=== PATIENT | male | born 1960 | race Caucasian/White ===

== ENCOUNTER 2017-09-18 01:18 | Observation (INO) | payer OTHER ==
[2017-09-18] VITALS (8 sets, daily range): BP systolic 148–183; BP diastolic 88–93; PULSE 71–94; RESP 16–20; TEMP 97.7–98.1; O2SAT 94–98
--- NOTE | 2017-09-18 01:41 | PD ---
HPI Chief Complaint: Respiratory Symptoms Time Seen by Provider: 01:27 Travel History International Travel<30 days: No Contact w/Intl Traveler<30days: No Traveled to known affect area: No History of Present Illness HPI 57-year-old male with history of hypertension on amlodipine and HCTZ, here by private vehicle for evaluation of sudden onset shortness of breath and substernal chest discomfort that started about an hour prior to arrival and will come up from sleep. Patient reports orthopnea and dyspnea with exertion. He also has noted bilateral lower extremity edema. He has history of asthma. No other known history of cardiopulmonary disease. No history of DVT or PE. No family history of cardiac disease. He is a non-smoker. No fevers, chills, cough, or recent illness. He does report that over the weekend he did consume a moderate amount of alcohol. PFSH Past Medical History Asthma: Yes Diminished Hearing: No Hypertension: Yes Immunizations Current: Yes Sleep Apnea: Yes Past Surgical History Other Surgery: Yes (VASECTOMY, NOSE) Social History Alcohol Use: Yes Tobacco Use: No Substance Use: No Allergies-Medications (Allergen,Severity, Reaction): Coded Allergies: No Known Allergies (Unverified , 09/18/17) Reported Meds & Prescriptions Reported Meds & Active Scripts Active Reported Hydrochlorothiazide 12.5 Mg Cap 12.5 Mg PO BID Amlodipine (Amlodipine Besylate) 5 Mg Tab 5 Mg PO DAILY Review of Systems Except as stated in HPI: all other systems reviewed are Neg Physical Exam Narrative GENERAL: Well-developed, well-nourished, comfortable, no apparent distress. SKIN: Focused skin assessment warm/dry. HEAD: Atraumatic. Normocephalic. EYES: Pupils equal and round. No scleral icterus. No injection or drainage. ENT: No nasal bleeding or discharge. Mucous membranes pink and moist. NECK: Trachea midline. No JVD. CARDIOVASCULAR: Regular rate and rhythm. No murmur appreciated. RESPIRATORY: No accessory muscle use. Slight bibasilar crackles, no wheezes or rhonchi. Breath sounds equal bilaterally. GASTROINTESTINAL: Abdomen soft, non-tender, nondistended. MUSCULOSKELETAL: No obvious deformities. No clubbing. No cyanosis. Moderate bilateral lower extremity edema from foot to knee. NEUROLOGICAL: Awake and alert. No obvious cranial nerve deficits. Motor grossly within normal limits. Normal speech. PSYCHIATRIC: Appropriate mood and affect; insight and judgment normal. Data Data Last Documented VS Vital Signs Date Time Temp Pulse Resp B/P (MAP) Pulse Ox O2 Delivery O2 Flow Rate FiO2 09/18/17 01:56 98 Nasal Cannula 2.00 09/18/17 01:20 97.7 94 18 183/93 (123) Orders Orders Complete Blood Count With Diff (09/18/17 01:32) Comprehensive Metabolic Panel (09/18/17 01:32) B-Type Natriuretic Peptide (09/18/17 01:32) D-Dimer (09/18/17 01:32) Act Partial Throm Time (Ptt) (09/18/17 01:32) Prothrombin Time / Inr (Pt) (09/18/17:32) Magnesium (Mg) (09/18/17 01:32) Ckmb (Isoenzyme) Profile (09/18/17 01:32) Troponin I (09/18/17 01:32) Iv Access Insert/Monitor (09/18/17 01:32) Electrocardiogram (09/18/17 01:32) Ecg Monitoring (09/18/17 01:32) Oximetry (09/18/17 01:32) Oxygen Administration (09/18/17 01:32) Chest, Single Ap (09/18/17 01:32) Sodium Chloride 0.9% Flush (Ns Flush) (09/18/17 01:45) Aspirin Chew (Aspirin Chew) (09/18/17 01:45) CKMB (09/18/17 01:55) CKMB% (09/18/17 01:55) Ct Pulmonary Angiogram (09/18/17 ) Nitroglycerin Sl (Nitrostat Sl) (09/18/17 02:45) Iohexol 350 Inj (Omnipaque 350 Inj) (09/18/17 02:48) Diphenhydramine Inj (Benadryl Inj) (09/18/17 04:00) Us Leg Venous Doppler Bilat (09/18/17 04:03) Labs Laboratory Tests Test 09/18/17 01:55 White Blood Count 6.4 TH/MM3 Red Blood Count 4.99 MIL/MM3 Hemoglobin 15.1 GM/DL Hematocrit 43.1 % Mean Corpuscular Volume 86.4 FL Mean Corpuscular Hemoglobin 30.3 PG Mean Corpuscular Hemoglobin Concent 35.1 % Red Cell Distribution Width 13.4 % Platelet Count 271 TH/MM3 Mean Platelet Volume 7.4 FL Neutrophils (%) (Auto) 52.1 % Lymphocytes (%) (Auto) 30.6 % Monocytes (%) (Auto) 10.6 % Eosinophils (%) (Auto) 6.2 % Basophils (%) (Auto) 0.5 % Neutrophils # (Auto) 3.4 TH/MM3 Lymphocytes # (Auto) 2.0 TH/MM3 Monocytes # (Auto) 0.7 TH/MM3 Eosinophils # (Auto) 0.4 TH/MM3 Basophils # (Auto) 0.0 TH/MM3 CBC Comment DIFF FINAL Differential Comment Prothrombin Time 9.7 SEC Prothromb Time International Ratio 1.0 RATIO Activated Partial Thromboplast Time 25.8 SEC D-Dimer Quantitative (PE/DVT) 0.51 MG/L FEU Blood Urea Nitrogen 14 MG/DL Creatinine 1.04 MG/DL Random Glucose 134 MG/DL Total Protein 7.8 GM/DL Albumin 4.0 GM/DL Calcium Level 8.5 MG/DL Magnesium Level 2.1 MG/DL Alkaline Phosphatase 51 U/L Aspartate Amino Transf (AST/SGOT) 42 U/L Alanine Aminotransferase (ALT/SGPT) 53 U/L Total Bilirubin 0.3 MG/DL Sodium Level 141 MEQ/L Potassium Level 3.4 MEQ/L Chloride Level 102 MEQ/L Carbon Dioxide Level 28.4 MEQ/L Anion Gap 11 MEQ/L Estimat Glomerular Filtration Rate 74 ML/MIN Total Creatine Kinase 423 U/L Creatine Kinase MB 3.9 NG/ML Creatine Kinase MB % 0.9 % Troponin I LESS THAN 0.02 NG/ML B-Type Natriuretic Peptide 9 PG/ML [facility] Medical Decision Making Medical Screen Exam Complete: Yes Emergency Medical Condition: Yes Interpretation(s) EKG: Sinus, rate 86, normal axis, normal intervals, no acute ischemic abnormality. Differential Diagnosis CHF, pulmonary edema, CAD, ACS, pneumothorax, PE, pneumonia, holiday heart, pericardial effusion Narrative Course Initial vital signs show heart rate 94, blood pressure 183/93, pulse ox 96% on 2 L nasal cannula, oral temp of 97.7F. CBC: WBC 6.4, hemoglobin 15.1, hematocrit 43.1, platelets 271. CMP is remarkable for potassium 3.4, AST 42, otherwise unremarkable. Troponin is negative. D-dimer 0.51. CT pulmonary angiogram: CONCLUSION: 1. There is no evidence of PE for technique. 2. Tiny right lung nodule, repeat noncontrast chest CT is suggested in 6 months as a conservative follow up. Patient and the patient's were made aware of all findings. On reassessment he complains of nasal congestion and believes he may have had an allergic reaction to the rubber hosing from the nasal cannula. He will be given a dose of Benadryl for this. Patient was given 1 sublingual nitroglycerin. He still complains of some mild substernal chest discomfort. He was made aware of CT findings of right lung nodule. Bilateral lower extremity venous duplex will be ordered for bilateral lower extremity edema to rule out DVT. Case was discussed with [facility] hospitalist Dr. Moore who recommends getting the lower extremity venous duplex. If this is negative he would like the patient to be admitted to the chest pain center for further cardiac workup. Bilateral lower extremity venous duplex: Negative for DVT. The patient and the patient's were made aware of all findings. He will be admitted to the chest pain center for further cardiac workup. They are amenable to this plan. Diagnosis Primary Impression: Chest pain Qualified Codes: R07.9 - Chest pain, unspecified Additional Impressions: Dyspnea Qualified Codes: R06.00 - Dyspnea, unspecified Bilateral lower extremity edema Pulmonary nodule Admitting Information Admitting Physician Requests: Nick Swanson MD September 18, 2017 01:41
[2017-09-18] MEDS ORDERED: SODIUM CHLORIDE 0.9% FLUSH 10 ML FLUSH IVF PRN (01:45)
[2017-09-18] MEDS ORDERED: ASPIRIN 81 MG CHEW TAB CHEW ONE (01:45)
--- NOTE | 2017-09-18 01:54 | RADRPT ---
EXAM DATE: 09/18/2017 1:52 AM EDT AGE/SEX: 57 years / Male INDICATIONS: Short of breath and chest discomfort. CLINICAL DATA: This is the patient's initial encounter. Patient reports that signs and symptoms have been present for 1 day and indicates a pain score of 5/10. MEDICAL/SURGICAL HISTORY: None. None. COMPARISON: No prior exams available for comparison. FINDINGS: The lungs are clear without infiltrate, nodule, or mass. There is no appreciable pleural effusion for technique. Heart and mediastinum are unremarkable. CONCLUSION: No acute cardiopulmonary disease. Electronically signed by: Yu Chavez MD 09/18/2017 1:53 AM EDT
[2017-09-18] MEDS ORDERED: AMLO5TAB2 PO (01:56)
[2017-09-18] MEDS ORDERED: HYDR12.57 PO (01:56)
[2017-09-18 02:09] LABS: AUTOMATED NEUTROPHIL # 3.4 TH/MM3 (1.8-7.7); BASOPHIL % 0.5 % (0.0-2.0); EOSINOPHIL # 0.4 TH/MM3 (0-0.4); EOSINOPHIL % 6.2 % (0.0-4.0); HEMATOCRIT 43.1 % (39.0-51.0); HEMOGLOBIN 15.1 GM/DL (13.0-17.0); LYMPH % 30.6 % (9.0-44.0); MEAN CELL VOLUME 86.4 FL (80.0-100.0); MEAN CORPUSCULAR HEMOGLOBIN 30.3 PG (27.0-34.0); MEAN CORPUSCULAR HGB CONC 35.1 % (32.0-36.0); MEAN PLATELET VOLUME 7.4 FL (7.0-11.0); MONO % 10.6 % (0.0-8.0); MONOCYTE # 0.7 TH/MM3 (0-0.9); NEUT % 52.1 % (16.0-70.0); PLATELET COUNT 271 TH/MM3 (150-450); RED BLOOD COUNT 4.99 MIL/MM3 (4.50-5.90); RED CELL DISTRIBUTION WIDTH 13.4 % (11.6-17.2); WHITE BLOOD COUNT 6.4 TH/MM3 (4.0-11.0)
[2017-09-18 02:21] LABS: D-DIMER 0.51 MG/L FEU (0.00-0.50); PROTHROMBIN TIME - PATIENT 9.7 SEC (9.8-11.6)
[2017-09-18 02:27] LABS: ALT (GPT) 53 U/L (12-78); AST (GOT) 42 U/L (15-37); BICARBONATE 28.4 MEQ/L (21.0-32.0); BLOOD UREA NITROGEN 14 MG/DL (7-18); CALCIUM 8.5 MG/DL (8.5-10.1); CHLORIDE 102 MEQ/L (98-107); CREATININE 1.04 MG/DL (0.60-1.30); GLOMERULAR FILTRATION RATE 74 ML/MIN (>89); GLUCOSE,RANDOM 134 MG/DL (74-106); MAGNESIUM 2.1 MG/DL (1.5-2.5); SODIUM (NA) 141 MEQ/L (136-145)
[2017-09-18 02:31] LABS: ALKALINE PHOSPHATASE 51 U/L (45-117); TOTAL BILIRUBIN ADULT 0.3 MG/DL (0.2-1.0); TOTAL PROTEIN 7.8 GM/DL (6.4-8.2); TROPONIN I LESS THAN 0.02 NG/ML (0.02-0.05)
[2017-09-18] MEDS ORDERED: NITROGLYCERIN 0.4 MG SL 25 TABS/BTL SL ONE (02:45)
[2017-09-18] MEDS ORDERED: IOHEXOL 350 MG/ML 10 ML VIAL (for RAD DIAG) IVCONTRAST ONE (02:48)
--- NOTE | 2017-09-18 03:51 | RADRPT ---
EXAM DATE: 09/18/2017 3:16 AM EDT AGE/SEX: 57 years / Male INDICATIONS: Shortness of breath. CLINICAL DATA: This is the patient's initial encounter. Patient reports that signs and symptoms have been present for 1 day and indicates a pain score of 4/10. MEDICAL/SURGICAL HISTORY: Hypertension. Asthma. None. RADIATION DOSE: 19.73 CTDI (mGy) COMPARISON: No prior exams available for comparison. TECHNIQUE: Volumetric scanning was performed using a multi-row detector CT scanner during bolus infu suzy of 75 ml Omnipaque 350 (iohexol) nonionic water-soluble contrast as a single exam dose. The maico a was post processed with a variety of visualization algorithms including full volume maximum intensi ty projection and sliding thin slab reformation. Using automated exposure control and adjustment of the mA and/or kV according to patient size, radiation dose was kept as low as reasonably achievable t o obtain optimal diagnostic quality images. FINDINGS: There is a tiny 4 to 5 mm nodule right upper lobe most likely benign and could be followed. There is no pleural effusion. No appreciable pathological adenopathy is seen within the mediastinum. There i s no evidence of PE for technique. CONCLUSION: 1. There is no evidence of PE for technique. 2. Tiny right lung nodule, repeat noncontrast chest CT is suggested in 6 months as a conservative fo llow up. Electronically signed by: Yu Chavez MD 09/18/2017 3:50 AM EDT
[2017-09-18] MEDS ORDERED: diphenhydrAMINE HCL 50 MG/ML VIAL IV PUSH ONE (04:00)
--- NOTE | 2017-09-18 05:05 | RADRPT ---
EXAM DATE: 09/18/2017 4:46 AM EDT AGE/SEX: 57 years / Male INDICATIONS: Bilateral leg swelling and shortness of breath. CLINICAL DATA: This is the patient's initial encounter. Patient reports that signs and symptoms have been present for 1 day and indicates a pain score of 0/10. MEDICAL/SURGICAL HISTORY: . Hypertension. . Vasectomy. Nasal surgery. COMPARISON: No prior exams available for comparison. TECHNIQUE: Venous ultrasound of both lower extremities was performed from the inguinal ligament to t he proximal calf. Real-time, color Doppler and spectral tracing, compression and augmentation techni ques were used. FINDINGS: Right Leg: There is normal compressibility of the deep venous system from the inguinal region to the proximal calf. No echogenic clot is seen in the lumen of the common femoral, femoral, popliteal, an d posterior tibial veins. There is a normal response of the venous system to proximal and distal aug mentation and respiration. Left Leg: There is normal compressibility of the deep venous system from the inguinal region to the proximal calf. No echogenic clot is seen in the lumen of the common femoral, femoral, popliteal, and posterior tibial veins. There is a normal response of the venous system to proximal and distal augm entation and respiration. CONCLUSION: 1. The study is negative for bilateral lower extremity deep venous thrombosis. Electronically signed by: Yu Chavez MD 09/18/2017 5:03 AM EDT
[2017-09-18] MEDS ORDERED: SODIUM CHLORIDE 0.9% FLUSH 10 ML FLUSH IV FLUSH PRN (05:15)
[2017-09-18 06:21] LABS: TROPONIN I LESS THAN 0.02 NG/ML (0.02-0.05)
[2017-09-18] MEDS ORDERED: POTASSIUM CHLORIDE 20 MEQ CONTROLLED RELEASE TAB PO ONE (07:30)
--- NOTE | 2017-09-18 08:52 | HHI.HP ---
[facility] Primary Care Physician Primitivo Sanchez MD, PhD Chief Complaint Chest pain History of Present Illness This is a 57-year-old male the presents to ED via private vehicle with a complaint of waking up around 1230 last evening with shortness of breath as his main complaint. His states that he had initially denied chest discomfort but while in the ED he states that he has been having a very mild ache across his chest since waking up with the shortness of breath. His states that she noticed that his legs were swollen and was concerned and told him that he had to come to the ED. Patient also states he got a little dizzy. He has history of hypertension and takes amlodipine and hydrochlorothiazide for that. Also states that he has been at a [employer] concert over the last few days. States he has been drinking more alcohol than he usually does and has been eating out as well. He is rated his discomfort as a 1 out of 10. Found nothing really to worsen or improve it. States he has never had a stress test. Denies recent travel. Denies recent illness. Review of Systems General: Patient denies fevers, chills, and recent travel. HEENT: Patient denies headache, sore throat, difficulty swallowing. Cardiovascular: Has the chest discomfort as mentioned above. Denies sensation of heart beating rapidly or irregularly. No syncope. Denies diaphoresis. Respiratory: He was short of breath when he woke up this morning. Denies inspirational chest discomfort. Denies coughing wheezing or hemoptysis. GI: Patient denies nausea, vomiting, diarrhea, abdominal pain, bloody stools. Musculoskeletal: Patient denies joint pain or edema. Denies calf pain or edema. Neurovascular: Patient denies numbness, tingling, weakness in extremities. Denies headache. Endocrine: Denies polyuria and polydipsia. Hematologic: Denies easy bruising. Skin: Denies rash or itching. Past Family Social History Allergies: Coded Allergies: No Known Allergies (Unverified , 09/18/17) Past Medical History Hypertension and asthma. Denies hyperlipidemia, diabetes, and known CAD. Past Surgical History Sinus surgery and vasectomy. Reported Medications Reported Meds & Active Scripts Active Reported Hydrochlorothiazide 12.5 Mg Cap 12.5 Mg PO BID Amlodipine (Amlodipine Besylate) 5 Mg Tab 5 Mg PO DAILY Active Ordered Medications Current Medications Medications (Trade) Dose Ordered Sig/Vitaliy Route Start Time Stop Time Status Last Admin (NS Flush) 2 ml UNSCH PRN IVF 09/18/17 01:45 (NS Flush) 2 ml UNSCH PRN IV FLUSH 09/18/17 05:15 (NS Flush) 2 ml BID IV FLUSH 09/18/17 09:00 09/18/17 08:36 (Norvasc) 5 mg DAILY PO 09/18/17 09:00 09/18/17 08:36 (Microzide) 12.5 mg BID PO 09/18/17 09:00 09/18/17 08:36 Family History Denies family history of CAD. Social History Quit smoking as a teenager. States he really never smoked much. He drinks on average 1-4 beers a night but states he is drinking quite a bit more over this past weekend. Denies illicit drug use. 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 Physical Exam Vital Signs Vital Signs Date Time Temp Pulse Resp B/P (MAP) Pulse Ox O2 Delivery O2 Flow Rate FiO2 09/18/17 07:41 97.8 78 20 148/92 (110) 95 09/18/17 06:44 09/18/17 05:54 94 21 09/18/17 05:43 157/89 (111) 09/18/17 05:35 71 16 168/89 (115) 96 Room Air 09/18/17 01:56 98 Nasal Cannula 2.00 09/18/17 01:44 2 09/18/17 01:20 97.7 94 18 183/93 (123) 96 Physical Exam GENERAL: This is a well-nourished, well-developed patient, in no apparent distress. Patient speaks in clear complete sentences. Patient is pleasant. HEENT: Head is atraumatic and normocephalic. Neck is supple without lymphadenopathy and trachea is midline. No JVD or carotid bruits. CARDIOVASCULAR: Regular rate and rhythm without murmurs, gallops, or rubs. RESPIRATORY: Clear to auscultation. Breath sounds equal bilaterally. No wheezes , rales, or rhonchi. Chest wall is nontender. No use of accessory muscles. GASTROINTESTINAL: Abdomen is nontender, nondistended. Abdomen soft. No obvious pulsatile mass or bruit. No CVA tenderness. Strong femoral pulses bilaterally. Normal bowel sounds in all quadrants. MUSCULOSKELETAL: 1+ edema bilateral lower extremities. Patient is moving upper and lower extremities freely. No calf tenderness. No Homans sign. Strong pulses in upper and lower extremities. NEUROLOGICAL: Patient is alert and oriented. Cranial nerves 2-12 are grossly intact. No focal deficits and speech is clear. SKIN: No rash and turgor is normal. Laboratory Laboratory Tests Test 09/18/17 01:55 09/18/17 05:25 White Blood Count 6.4 Red Blood Count 4.99 Hemoglobin 15.1 Hematocrit 43.1 Mean Corpuscular Volume 86.4 Mean Corpuscular Hemoglobin 30.3 Mean Corpuscular Hemoglobin Concent 35.1 Red Cell Distribution Width 13.4 Platelet Count 271 Mean Platelet Volume 7.4 Neutrophils (%) (Auto) 52.1 Lymphocytes (%) (Auto) 30.6 Monocytes (%) (Auto) 10.6 Eosinophils (%) (Auto) 6.2 Basophils (%) (Auto) 0.5 Neutrophils # (Auto) 3.4 Lymphocytes # (Auto) 2.0 Monocytes # (Auto) 0.7 Eosinophils # (Auto) 0.4 Basophils # (Auto) 0.0 CBC Comment DIFF FINAL Differential Comment Prothrombin Time 9.7 Prothromb Time International Ratio 1.0 Activated Partial Thromboplast Time 25.8 D-Dimer Quantitative (PE/DVT) 0.51 Blood Urea Nitrogen 14 Creatinine 1.04 Random Glucose 134 Total Protein 7.8 Albumin 4.0 Calcium Level 8.5 Magnesium Level 2.1 Alkaline Phosphatase 51 Aspartate Amino Transf (AST/SGOT) 42 Alanine Aminotransferase (ALT/SGPT) 53 Total Bilirubin 0.3 Sodium Level 141 Potassium Level 3.4 Chloride Level 102 Carbon Dioxide Level 28.4 Anion Gap 11 Estimat Glomerular Filtration Rate 74 Total Creatine Kinase 423 348 Creatine Kinase MB 3.9 2.8 Creatine Kinase MB % 0.9 0.8 Troponin I LESS THAN 0.02 LESS THAN 0.02 B-Type Natriuretic Peptide 9 Result Diagram: 09/18/17 0155 09/18/17 0155 Imaging Last 48 hours Impressions Lower Extremity Ultrasound 09/18/17 0403 Signed Impressions: CONCLUSION: 1. The study is negative for bilateral lower extremity deep venous thrombosis. Chest X-Ray 09/18/17 0132 Signed Impressions: CONCLUSION: No acute cardiopulmonary disease. CT Angiography 09/18/17 0000 Signed Impressions: CONCLUSION: 1. There is no evidence of PE for technique. 2. Tiny right lung nodule, repeat noncontrast chest CT is suggested in 6 month s as a conservative follow up. Course EKGs are sinus rhythm without significant ST segment depressions or elevations. Caprini VTE Risk Assessment Caprini VTE Risk Assessment: No/Low Risk (score <= 1) Caprini Risk Assessment Model Point Value = 1 Point Value = 2 Point Value = 3 Point Value = 5 Age 41-60 Minor surgery BMI > 25 kg/m2 Swollen legs Varicose veins or History of unexplained or recurrent spontaneous Oral contraceptives or hormone replacement Sepsis (< 1 month) Serious lung disease, including pneumonia (< 1 month) Abnormal pulmonary function Acute myocardial infarction Congestive heart failure (< 1 month) History of inflammatory bowel disease Medical patient at bed rest Age 61-74 Arthroscopic surgery Major open surgery (> 45 min) Laparoscopic surgery (> 45 min) Malignancy Confined to bed (> 72 hours) Immobilizing plaster cast Central venous access Age >= 75 History of VTE Family history of VTE Factor V Leiden Prothrombin [id number] Lupus anticoagulant Anticardiolipin antibodies Elevated serum homocysteine Heparin-induced thrombocytopenia Other congenital or acquired thrombophilia Stroke (< 1 month) Elective arthroplasty Hip, pelvis, or leg fracture Acute spinal cord injury (< 1 month) Prophylaxis Regimen Total Risk Factor Score Risk Level Prophylaxis Regimen 0-1 Low Early ambulation 2 Moderate Order ONE of the following: *Sequential Compression Device (SCD) *Heparin 5000 units SQ BID 3-4 Higher Order ONE of the following medications: *Heparin 5000 units SQ TID *Enoxaparin/Lovenox 40 mg SQ daily (WT < 150 kg, CrCl > 30 mL/min) *Enoxaparin/Lovenox 30 mg SQ daily (WT < 150 kg, CrCl > 10-29 mL/min) *Enoxaparin/Lovenox 30 mg SQ BID (WT < 150 kg, CrCl > 30 mL/min) AND/OR *Sequential Compression Device (SCD) 5 or more Highest Order ONE of the following medications: *Heparin 5000 units SQ TID (Preferred with Epidurals) *Enoxaparin/Lovenox 40 mg SQ daily (WT < 150 kg, CrCl > 30 mL/min) *Enoxaparin/Lovenox 30 mg SQ daily (WT < 150 kg, CrCl > 10-29 mL/min) *Enoxaparin/Lovenox 30 mg SQ BID (WT < 150 kg, CrCl > 30 mL/min) AND *Sequential Compression Device (SCD) Assessment and Plan Assessment and Plan * Chest pain: Patient will continue to have serial cardiac enzymes and EKGs for ruling out purposes. He has been seen by Dr. Gomez of cardiology in the chest pain center. He will have a Anival protocol ETT and likely be discharged home if the stress test is nonischemic with instructions to follow-up with PCP. Return to ED for interval issues. * Hypertension: Continue medication. His potassium was a little low at 3.4. He was given potassium supplementation. He should discuss this further with his PCP as he is not on potassium supplementation while being on the diuretic. * Hypokalemia: Patient was given potassium supplementation in the ED. He should discuss this with his PCP. * Lung nodule: A right-sided lung nodule is seen on the CTA. He should have follow-up CT scan in 6 months. Discussed this with PCP Patient is stable at this time. He is agreeable to this plan. Gunnar Barr September 18, 2017 08:52
--- NOTE | 2017-09-18 08:55 | HHI.DCPOC ---
Discharge Care Plan Diagnosis: (1) Chest pain (2) Hypertension (3) Hypokalemia (4) Pulmonary nodule Goals to Promote Your Health CT scan revealed a pulmonary nodule. Radiologist recommends follow-up CT in 6 months. Discussed this with your primary care physician so this will be arranged. Also potassium was low. Your on a diuretic. He should discuss this with your PCP. They may want you on potassium supplementation. * To prevent worsening of your condition and complications * To maintain your health at the optimal level Directions to Meet Your Goals Take your medications as prescribed Follow your dietary instruction Follow activity as directed Keep your appointments as scheduled Take your immunizations and boosters as scheduled If your symptoms worsen call your PCP, if no PCP go to Urgent Care Center or Emergency Room Smoking is Dangerous to Your Health. Avoid second hand smoke Call the 24-hour hour crisis hotline for domestic abuse at Gunnar Barr September 18, 2017 08:55
[2017-09-18] MEDS ORDERED: amLODIPine BESYLATE 5 MG TAB PO SCH (09:00)
[2017-09-18] MEDS ORDERED: HYDROCHLOROTHIAZIDE 12.5 MG CAP PO SCH (09:00)
[2017-09-18] MEDS ORDERED: SODIUM CHLORIDE 0.9% FLUSH 10 ML FLUSH IV FLUSH SCH (09:00)
[2017-09-18 10:30] LABS: TROPONIN I LESS THAN 0.02 NG/ML (0.02-0.05)
--- NOTE | 2017-09-18 16:49 | EKG ---
Date Performed: 09/18/2017 Time Performed: 01:40:10 PTAGE: 57 years EKG: Sinus rhythm NORMAL ECG no prior for comparison DOCTOR: Zuleyka Gomez Interpretating Date/Time 09/21/2017 08:23:47
--- NOTE | 2017-09-18 16:49 | EKG ---
Date Performed: 09/18/2017 Time Performed: 05:26:50 PTAGE: 57 years EKG: Sinus rhythm NORMAL ECG Since PREVIOUS TRACING , no significant change noted DOCTOR: Zuleyka Gomez Interpretating Date/Time 09/21/2017 08:23:59
--- NOTE | 2017-09-18 16:50 | EKG ---
Date Performed: 09/18/2017 Time Performed: 08:30:17 PTAGE: 57 years EKG: Sinus rhythm NORMAL ECG Since PREVIOUS TRACING , no significant change noted PREVIOUS TRACIN09/18/2017 05.26 DOCTOR: Zuleyka Gomez Interpretating Date/Time 09/21/2017 08:24:07
--- NOTE | 2017-09-18 16:53 | TR ---
Date Performed: 09/18/2017 Time Performed: 11:56:47 DOCTOR: Zuleyka Gomez DRUG LIST: CLINICAL HISTORY: REASON FOR TEST: REASON FOR ENDING: OBSERVATION: CONCLUSION: YOKASTA PROTOCOL. NO CP. TEST STOPPED AFTER EXCEEDING GOAL HR SECONDARY TO SOB AND LEG FATIGUE.Maximum IC=031 Total Exercise Time=9:01 COMMENTS: No ischemia
== END 2017-09-18 15:24 | disposition home or self-care (01) ==
LOC: NEPC 01:18 → NEDA 05:11 → NEPFCDU 06:22
PROVIDERS: ADMIT Internal Medicine Cardiovascular Disease; ATTEND Internal Medicine Cardiovascular Disease
DX: R07.89 Other chest pain (principal); I10 Essential (primary) hypertension; E87.6 Hypokalemia; R91.1 Solitary pulmonary nodule; R06.01 Orthopnea; R60.0 Localized edema; R09.81 Nasal congestion; R06.02 Shortness of breath; R42 Dizziness and giddiness; J45.909 Unspecified asthma, uncomplicated; G47.30 Sleep apnea, unspecified; Z79.899 Other long term (current) drug therapy; Z87.891 Personal history of nicotine dependence
CPT/HCPCS: 71045; 71275; 80053; 82550; 82552; 83735; 83880; 84484; 85025; 85379; 85610; 85730; 93005; 93017; 93970; 99285; G0378; J1200; Q9967